=== PATIENT | male | born 1930 | race Caucasian/White ===

== ENCOUNTER 2019-01-24 12:57 | Outpatient (CLI) | payer MEDICARE, OTHER ==
--- NOTE | 2019-01-24 14:05 | RAD ---
XR Lumbar Spine 2 Or 3 View History: Compression fracture Comparison: None. Findings: The lateral radiographs are practically nondiagnostic. Compression fracture of L3 with retr opulsion narrowing the spinal canal. There is greater than 50% anterior height loss. Impression: Incomplete burst fracture of L3 with retropulsion narrowing the spinal canal and greater than 50% anterior height loss. CT or MRI recommended for evaluation.
--- NOTE | 2019-01-24 16:01 | CT ---
Exam: Lumbar spine CT without contrast HISTORY: Compression fracture. Back pain. Comparison : None. FINDINGS: There is diffuse bone demineralization. Mild compression fracture at T12 without significant retropul harish. Endplate sclerosis suggesting a chronic process. Minimal loss of the vertebral body height at L1 with irregularity of the superior endplate. Fracture is age indeterminate. There is a acute modera te compression fracture at L3 with fracture lucency and retropulsion. Additional lumbar spine fractures are not appreciated Vacuum disc phenomenon at L3-L4, L4-L5 and L5-S1 Visualized solid organs and alimentary canal are unremarkable. Atherosclerosis of a nonaneurysmal aorta There appears be post surgical change in the posterior midline soft tissues. There does appear to be a paraspinal hematoma at the L2-L3 disc space, and L3 vertebral body. Straightening of normal lumbar lordosis. No spondylolysis. Limited evaluation the contents of the central spinal canal and neural foramina due to technique T12-L1: No high-grade central canal stenosis or high-grade neural foraminal narrowing L1-L2: Broad-based disc bulge, ligament flavum thickening and facet hypertrophy result in moderate ce ntral canal stenosis. Moderate to severe bilateral neural foraminal narrowing L2-L3: Retropulsion, broad-based disc bulge, ligament flavum thickening and posteriorly hypertrophy r esult in severe central canal stenosis. There may be an epidural hematoma contributing to the overall degree of central canal stenosis. Moderate to severe bilateral neural foraminal narrowing. Th ere is malalignment of the posterior elements secondary to bilateral inferior pars fractures at L2. There is anterolisthesis of L2 to upon L3. Anterolisthesis along with retropulsion do contribute to t he overall degree of severe central canal stenosis. Moderate to severe bilateral neural foraminal narrowing L3 vertebral body: Decompressive laminectomy defect. Abnormal soft tissue attenuation the operative s ite. Central spinal canal cannot be adequately assessed. L3-L4: Vacuum disc phenomenon. Left hemilaminotomy defect. Broad-based disc bulge, posterior element hypertrophy result in moderate central canal stenosis. Moderate bilateral neural foraminal narrowing. There is partial resection left L3 facet. L4-L5: Vacuum disc phenomenon. Broad-based disc bulge, ligament flavum thickening and facet hypertrop hy result in moderate central canal stenosis. Moderate bilateral foraminal narrowing L5-S1: Vacuum disc phenomenon. Broad-based disc bulge abuts the traversing left and right L5 nerve ro ots. No significant central canal stenosis. Moderate bilateral neural foraminal narrowing. IMPRESSION: 1. Redemonstration of a L3 burst fracture. At the L2-L3 level, there is severe central canal stenosis secondary to retropulsion of the L3 vertebral body as well as anterolisthesis of L2 upon L3 secondary to bilateral facet fractures at L2. Component of postoperative change cannot be excluded. P ossibility of a anterior epidural hematoma cannot be excluded. 2. Posterior cervical changes compatible with partial resection of the inferior right L3 facet. 3. Posttraumatic change involving the L1 vertebral body, age indeterminate. Likely chronic mild compr ession fracture at T12. Results study conveyed to Dr. Rosa, via [employer] [facility] 01/24/2019 at 3:59 PM Code CR Transcribed Date/Time: 01/24/2019 4:08 PM
== END 2019-01-24 12:58 | disposition home or self-care (01) ==
LOC: TBSIIMAG 12:57
PROVIDERS: ATTEND Neurological Surgery
DX: M48.56XA Collapsed vertebra, not elsewhere classified, lumbar region, initial encounter for fracture (principal); M54.16 Radiculopathy, lumbar region; M48.061 Spinal stenosis, lumbar region without neurogenic claudication; S32.031A Stable burst fracture of third lumbar vertebra, initial encounter for closed fracture; Z98.890 Other specified postprocedural states
CPT/HCPCS: 72100; 72131

== ENCOUNTER 2019-02-06 11:12 | Emergency (ER) | payer MEDICARE, OTHER ==
--- NOTE | 2019-02-06 13:04 | RAD ---
EXAM: XR Lumbar Spine 2 Or 3 View PROVIDED CLINICAL HISTORY: Pain in the region of the L4 vertebral body after a fall. COMPARISON: 01/24/2019. FINDINGS: L3 burst fracture is again seen with persistent prominent retropulsion of the posterior superior endp late. There is also suggestion of slight anterolisthesis of L2 on L3. Fracture involving the inferior articulating facets of the L2 vertebral body are also again noted. Degree of height loss inv olving the L3 vertebral body is similar. Based on radiographic evaluation, there is likely severe narrowing of the central spinal canal at the level of retropulsion of fracture fragments. There is a mild compression fracture involving the superior endplate of the L1 vertebral body. This i s not well appreciated on prior radiographs due to technique of that exam. There is narrowing of the intervertebral disc spaces at all levels of the lumbar spine with vacuum ph enomenon at the L4-5 and L5-S1 levels. Scattered osteophytes are present. Vascular calcifications are seen abdominal aorta and involving the iliac arteries. IMPRESSION: 1. Mild compression fracture superior endplate L1 vertebral body not definitely appreciated on prior exams. 2. Burst fracture L3 vertebral body with stable degree of height loss. Fractures involving the inferi or articulating facets of the L2 vertebral body is again present.
[2019-02-06] MEDS ORDERED: Lidocaine 1% w/Epinephrine 1:100K 20 ML VIAL ONE (13:55)
== END 2019-02-06 13:50 | disposition home or self-care (01) ==
LOC: ERS 11:12
DX: M54.5 Low back pain (principal); I10 Essential (primary) hypertension; I25.2 Old myocardial infarction; Z79.899 Other long term (current) drug therapy; W18.30XA Fall on same level, unspecified, initial encounter
CPT/HCPCS: 72100

== ENCOUNTER 2019-02-22 07:09 | Outpatient (CLI) | payer MEDICARE, OTHER ==
[2019-02-22 08:23] LABS: Estimated GFR-MDRD - POC Greater than 90
--- NOTE | 2019-02-22 10:16 | MRI ---
MRI LUMBAR SPINE WITH AND WITHOUT CONTRAST: DATE: 02/22/2019 HISTORY: 88-year-old male with ICD-10: S 22.008A thoracolumbar fracture. Low back pain and bilateral lumbar ra diculopathy with bilateral lower extremity weakness. Dr. Hdz notified Dr. Dipak Rosa of the extremely severe central spinal canal stenosis at L2-3 with co mpression of cauda equina by Cipriano austin at 9:52 AM on 02/22/2019 COMPARISON: 01/24/2019 CT. No prior MRI TECHNIQUE: Multiple sequences obtained in axial and sagittal planes, pre and post IV injection of gadolinium-bas ed contrast agent. FINDINGS: There are 5 lumbar-type vertebrae. There is bilateral edema and enhancement involving the bilateral s o as muscles and in the bilateral posterior paraspinal paramedian musculature. There is severe tortuosity of the cauda equina from L1 through L2-3, due to the extremely severe central spinal canal stenosis at L2-3. T11-12:Moderate disc space narrowing. Diffuse disc bulge. Mild central stenosis. Moderate bilateral n eural foraminal stenosis. T12-L1:Mild diffuse disc bulge plus superimposed small focal central disc protrusion. Bilateral mild to moderate facet DJD. Moderate bilateral neural foraminal stenosis. Depression of superior endplate of L1, new since the recent CT, resulting in approximately 20-35% loss of height centrally a nd anteriorly. Associated bone marrow edema indicating that this is acute or subacute. Minimal bony retropulsion. Mild to moderate central stenosis. L1-2:Diffuse disc bulge. No high-grade central stenosis. Moderate bilateral neural foraminal stenosis . L2-3:Bilateral L2 inferior articular facet fractures result in rate 1 anterolisthesis of L2 on L3 (be st appreciated on the CT). This, together with the significant bony retropulsion of the L3 burst fracture results in extremely severe central spinal canal stenosis, completely obliterating CSF signa l, and severely circumferentially compressing the cauda equina. Depression of body of L3 results in about 75% loss of height. Extensive bone marrow edema indicating that the burst fracture is recent. A lso very severe bilateral neural foraminal stenosis compressing the bilateral exiting L2 nerve roots. L3-4:Left hemilaminectomy defect. Very small extruded left paracentral and lateral disc fragment surr ounded by enhancing postsurgical tissue which could either represent scar tissue if the surgery was remote, or granulation tissue if the surgery was recent. This mildly posteriorly displaces the left L 4 nerve root. Mild central stenosis. Severe bilateral neural foraminal stenosis. L4-5:Moderate bilateral facet DJD. Severe bilateral neural foraminal stenosis. Moderate to severe dis c space narrowing. Disc bulge. Left lateral recess stenosis. Mild central stenosis. L5-S1: Moderate to severe central stenosis. Conjoined nerve root. No central stenosis. Mild to modera te facet DJD. Moderate bilateral neural foraminal stenosis. Moderate to severe disc space narrowing. IMPRESSION: 1) extremely severe central spinal canal stenosis at L2-3 with severe circumferential compression of cauda equina due to combination of grade 1 anterolisthesis of L2 on L3 due to bilateral L2 inferior articular facet fractures, and bony retropulsion of the subacute burst fracture of L3. 2) very severe bilateral neural foraminal stenosis at L2-3. 3) acute or subacute compression fracture of L1, which occurred sometime after the previous CT of .
== END 2019-02-22 07:10 | disposition home or self-care (01) ==
LOC: MRI 07:09
PROVIDERS: ATTEND Family Medicine
DX: S22.008A Other fracture of unspecified thoracic vertebra, initial encounter for closed fracture (principal); S32.019A Unspecified fracture of first lumbar vertebra, initial encounter for closed fracture; M48.062 Spinal stenosis, lumbar region with neurogenic claudication; M43.16 Spondylolisthesis, lumbar region
CPT/HCPCS: 72158; 82565

== ENCOUNTER 2019-02-24 09:01 | Observation (INO) | payer MEDICARE, OTHER ==
[2019-02-23 10:38] VITALS: BMI 23.6
--- NOTE | 2019-02-24 07:49 | HP ---
HISTORY OF PRESENT ILLNESS: Mr. Oneil is a very pleasant 88-year-old gentleman with a history significant for a discectomy procedure performed emergently while up in [place] a few months ago, underwent rehab there and upon returning here noted symptoms of cauda equina. Unfortunately, he then suffered an L3 compression fracture and that evolved into a burst-type fracture with some retropulsion of the superior endplate of L3 as well as perhaps a slight anterolisthesis. New imaging confirms this and reveals significant central canal compression at the L2-L3 segment secondary to bony retropulsion. He has reported significant proximal lower extremity weakness and difficulty walking and is now dependent upon a walker to do self. He and his are concerned of this. PAST MEDICAL HISTORY: Coronary arterial disease, congestive heart failure, hypertension, glaucoma, hyperlipidemia, history of myocardial infarction, and history of prostate cancer. PAST SURGICAL HISTORY: Lumbar decompression and diskectomy, cardiac cath, prostate biopsy, and tonsillectomy. ALLERGIES: TO BETA-BLOCKERS, SULFA DRUGS, AND CEFUROXIME. CURRENT MEDICATIONS: 1. Atorvastatin. 2. Finasteride. 3. Iron. 4. Latanoprost. 5. Senna. 6. Timolol. 7. Tramadol. PHYSICAL EXAMINATION: GENERAL: The patient is alert and oriented x3. EXTREMITIES: Lower extremity motor exam reveals 4/5 in hip flexion bilaterally as well as knee extension bilaterally. 5/5 strength in knee flexion as well as ankle plantar and dorsiflexion. There is no sensory disturbance ASSESSMENT: Lumbar stenosis and L3 compression fracture. PLAN: Dr. Rosa met with the patient He explained to the patient the risks, benefits, and alternatives to the procedure. The patient expressed understanding and elected to move forward with the surgery as discussed. I do believe the patient is mentally competent and capable of making medical decisions for himself. We will move forward with surgery as planned. Job ID: [id number]
[2019-02-24] MEDS ORDERED: Lidocaine 1% PF 5 ML VIAL ONE (09:44)
[2019-02-24] MEDS ORDERED: PHENYLEPHRINE-NS 100 MCG/ML 10 ML SYRINGE ONE (09:44)
[2019-02-24] MEDS ORDERED: PROPOFOL 200 MG/20 ML VIAL ONE (09:44)
[2019-02-24] MEDS ORDERED: Rocuronium Bromide 10 MG/ML (10ML VIAL) ONE (09:44)
[2019-02-24] MEDS ORDERED: Glycopyrrolate 0.2 MG/ML 5 ML SYRINGE ONE (09:44)
[2019-02-24] MEDS ORDERED: Ondansetron PF 4 MG/2 ML Vial ONE (09:44)
[2019-02-24] MEDS ORDERED: Dexamethasone 20 MG/5 ML VIAL ONE (09:44)
[2019-02-24] MEDS ORDERED: Sodium Chloride 0.9% 0 ML ONE (11:16)
[2019-02-24] MEDS ORDERED: EPINEPHrine 1 MG/ML AMP ONE (11:56)
[2019-02-24] MEDS ORDERED: Thrombin 5000 UNITS/5 ML VIAL ONE (11:56)
[2019-02-24] MEDS ORDERED: Bupivacaine PF 0.5% 30 ML VIAL ONE (11:56)
[2019-02-24] MEDS ORDERED: Midazolam HCl 2 mg/2 ml Vial ONE (12:28)
[2019-02-24] MEDS ORDERED: Fentanyl 100 MCG/2 ML VIAL ONE ×2 (12:28→14:35)
[2019-02-24] MEDS ORDERED: Bisacodyl 10 MG SUPP PR PRN (14:14)
[2019-02-24] MEDS ORDERED: tiZANidine HCl 4 MG TAB PO PRN (14:14)
[2019-02-24] MEDS ORDERED: traMADol HCl 50 MG TAB PO PRN ×2 (14:14)
[2019-02-24] MEDS ORDERED: Ondansetron PF 4 MG/2 ML Vial IVP PRN (14:14)
[2019-02-24] MEDS ORDERED: Morphine 2 MG/ML SYRINGE SLOW IVP PRN (14:14)
[2019-02-24] MEDS ORDERED: Milk Of Magnesia 30 ML UDCUP PO PRN (14:14)
[2019-02-24] MEDS ORDERED: diphenhydrAMINE 50 MG/ML VIAL IVP PRN (14:14)
[2019-02-24] MEDS ORDERED: Senokot S 8.6-50 MG TAB PO PRN (14:18)
[2019-02-24] MEDS ORDERED: Meperidine HCl/PF 25 MG/ML VIAL SLOW IVP PRN (14:24)
[2019-02-24] MEDS ORDERED: Promethazine HCl 25 MG/ML VIAL IM PRN (14:24)
[2019-02-24] MEDS ORDERED: Ondansetron HCl/PF 4 MG/2 ML Vial IVP PRN (14:24)
--- NOTE | 2019-02-24 18:25 | OP ---
DATE OF PROCEDURE: 02/24/2019 CLERICAL AIDE TEACHER: Rafa Mcbride PA-C INDICATION: Progressive neurologic decline. DIAGNOSIS: Spinal canal compromise with conus compression secondary to L2-L3 stenosis from burst fracture. PROCEDURE PERFORMED: Re-operation L2-L3 decompression. ANESTHESIA: General. DESCRIPTION OF PROCEDURE: The patient was brought into the operating room and placed under general anesthesia. He was flipped from the supine to prone position on the operating room table. A linear incision was planned at the area of an old incision site. This area was prepped and draped. Following an appropriate operative pause, the incision was created. The soft tissues were swept away from midline. Self-retaining retractors were placed. A C-arm image was obtained to confirm the fracture site as well as the location of needed decompression. The inferior articulating facets of L2 were already missing from the patient's prior surgical procedure performed elsewhere. The remaining lamina was removed up through L2 in order to decompress the L2-L3 segment at the area of conus compression. After decompressing the segment, the wound was irrigated. Hemostasis was maintained throughout. The wound was then closed in anatomic layers, and a pressure dressing was applied. There were no known procedural complications. Job ID: [id number] [facility]
[2019-02-24] MEDS: Sodium Chloride 0.9% 1,000 ML IV SCH (18:49)
[2019-02-24] MEDS: Timolol 0.5% Ophth Soln 5 ml Bottle EA EYE SCH (21:22)
[2019-02-24] MEDS: CEFAZOLIN 2 GM in Premix Bag 1 BAG IVPB SCH (21:22)
[2019-02-24] MEDS: Latanoprost 0.005% Ophth Soln 2.5 ml Bottle EA EYE SCH (21:22)
[2019-02-24] MEDS: Iron Polysaccharides Complex 150 MG CAP PO SCH (21:28)
[2019-02-25] MEDS: Sodium Chloride 0.9% 1,000 ML IV SCH ×3 (03:48→21:53)
[2019-02-25] MEDS: CEFAZOLIN 2 GM in Premix Bag 1 BAG IVPB SCH (03:59)
[2019-02-25] MEDS ORDERED: Prevnar 13-Val Conj/PF 0.5 ML SYRINGE IM ONE (09:00)
--- NOTE | 2019-02-25 09:03 | PRG ---
DATE OF SERVICE: 02/25/2019 I saw Mr. Oneil on rounds this morning. He is one day out from a lumbar decompression for spinal stenosis from a subacute burst fracture. Prior to surgery, Mr. Oneil was losing significant strength and since the operation he has not noticed much in the way of difference. However, Mr. Oneil has not been out of bed. He and his were concerned about urinary retention, but this may have been an issue before the operation. I do not see any fevers recorded on the electronic vital signs. The blood pressures have been in the 140s to 150s. On examination, there is antigravity strength in all muscle groups of the lower extremities. My plan is to have Mr. Oneil work with Physical Therapy today. Evidently, he has been pre-approved for inpatient rehabilitation and that is a good option. Today, if possible, he could be transferred. If transferring there today is impossible, we will work with him in Physical therapy today. Standing at bedside could be a goal for today. Anticipate any anesthesia affects on the bladder to be short lived. Job ID: [id number] [facility]TD[facility]
[2019-02-25] MEDS: Timolol 0.5% Ophth Soln 5 ml Bottle EA EYE SCH ×2 (09:46→21:50)
[2019-02-25] MEDS: Iron Polysaccharides Complex 150 MG CAP PO SCH ×2 (09:46→21:50)
[2019-02-25] MEDS: Acetaminophen 500 MG TAB PO PRN (10:24)
[2019-02-25] MEDS ORDERED: Atorvastatin Calcium 40 MG TAB PO SCH (21:00)
[2019-02-25] MEDS: Latanoprost 0.005% Ophth Soln 2.5 ml Bottle EA EYE SCH (21:51)
[2019-02-26] MEDS: Acetaminophen 500 MG TAB PO PRN ×2 (00:01→15:32)
[2019-02-26] MEDS: Sodium Chloride 0.9% 1,000 ML IV SCH (07:53)
[2019-02-26] MEDS: Timolol 0.5% Ophth Soln 5 ml Bottle EA EYE SCH (08:22)
[2019-02-26] MEDS: Iron Polysaccharides Complex 150 MG CAP PO SCH (09:03)
--- NOTE | 2019-02-26 11:15 | PRG ---
DATE OF SERVICE: 02/26/2019 I saw Mr. Oneil in his hospital room this morning. His said he was disoriented overnight, but did well with physical therapy yesterday during the day. I do not see any fevers recorded in our electronic vital signs. His blood pressures have been in the 140s to 160s. On examination today, he has good strength and sensation in the lower extremities. I reassured Mr. Oneil that the placement in inpatient rehabilitation would be a good idea. Hopefully, that can be done tomorrow. He is having some difficulty with bladder function, and if that continues, we could leave the catheter in or consult Urology. I think it will resolve itself with I and O catheterization. Job ID: [id number]
[2019-02-26 15:53] VITALS: BP 121/79; TEMP 98.1
== END 2019-02-26 18:03 ==
LOC: SDC 09:01 → SURG B 14:19
PROVIDERS: ADMIT Neurological Surgery; ATTEND Neurological Surgery
PROC: 01NB0ZZ Release Lumbar Nerve, Open Approach (ICD-10-PCS; principal; 2019-02-24)
DX: S32.031A Stable burst fracture of third lumbar vertebra, initial encounter for closed fracture (principal); M48.061 Spinal stenosis, lumbar region without neurogenic claudication; M54.16 Radiculopathy, lumbar region; I25.10 Atherosclerotic heart disease of native coronary artery without angina pectoris; E78.5 Hyperlipidemia, unspecified; I25.2 Old myocardial infarction; I11.0 Hypertensive heart disease with heart failure; I50.9 Heart failure, unspecified; Z79.899 Other long term (current) drug therapy; Z88.2 Allergy status to sulfonamides; Z88.8 Allergy status to other drugs, medicaments and biological substances; Z98.890 Other specified postprocedural states
CPT/HCPCS: 63042; 76000; 90670; 96361 ×3; 96365; 96366; 96375 ×2; 97110; 97116 ×2; 97530; G0009; G0378 ×3; 90471; J0131; J0171; J0690; J1100; J1200; J2001; J2250; J2270; J2405; J2704; J3010; J3490; S0020

== ENCOUNTER 2019-03-23 10:28 | Outpatient (CLI) | payer MEDICARE, OTHER ==
--- NOTE | 2019-03-23 10:57 | RAD ---
TWO VIEWS LUMBAR SPINE: COMPARISON: 02/06/2019. FINDINGS: Five lumbar-type vertebral bodies with progression of loss of vertebral body height at L1 (moderate). Interval development of loss of vertebral body height at L2 (mild to moderate). Progression of loss of vertebral body height with what is now compatible with vertebra plana at the L3 level. Slight ly worsening retropulsion. IMPRESSION: 1. Worsening loss of vertebral body height at L1 and L3. 2. Interval development of a mild to moderate compression fracture at L2. Compression fracture is not appreciated on the MRI from 02/22/2019 suggesting a subacute process. Correlate clinically. CODE T Transcribed Date/Time: 03/23/2019 11:04 AM
== END 2019-03-23 10:29 | disposition home or self-care (01) ==
LOC: TBSIIMAG 10:28
PROVIDERS: ATTEND Neurological Surgery
DX: M54.16 Radiculopathy, lumbar region (principal); M48.56XA Collapsed vertebra, not elsewhere classified, lumbar region, initial encounter for fracture; M48.8X6 Other specified spondylopathies, lumbar region
CPT/HCPCS: 72100

== ENCOUNTER 2019-06-20 09:11 | Outpatient (CLI) | payer MEDICARE, OTHER ==
--- NOTE | 2019-06-20 11:09 | RAD ---
LUMBAR SPINE 2 VIEWS: Date: 06/20/2019 INDICATION: Thoracolumbar fracture. Low back pain. COMPARISON: 03/23/2019. FINDINGS: Wedge compression deformities seen at T12, L1, L2, and L3 vertebra. Severe wedge compression at L3 wi th posterior retropulsion of L3. L4 and L5 vertebra maintain height and alignment. Degenerative disc changes and spurring with facet hypertrophy throughout. The findings appear stable when compared to 03/23/2019. IMPRESSION: Multiple compression deformities, most severe at L3 where there is posterior retropulsion. The findin gs appear stable from 03/23/2019. POS: [facility]
== END 2019-06-20 09:12 | disposition home or self-care (01) ==
LOC: BICRAD 09:11
PROVIDERS: ATTEND Neurological Surgery
DX: S24.109A Unspecified injury at unspecified level of thoracic spinal cord, initial encounter (principal); G95.20 Unspecified cord compression; M53.86 Other specified dorsopathies, lumbar region
CPT/HCPCS: 72100

== ENCOUNTER 2019-11-30 12:50 | Outpatient (CLI) | payer MEDICARE, OTHER ==
--- NOTE | 2019-11-30 13:32 | RAD ---
Radiograph thoracic spine 3 views: 11/30/2019 HISTORY: 81-year-old male with mid back pain FINDINGS: There is multilevel moderate degenerative disc disease in the mid and lower levels. No high-grade sco liosis. Vertebral body heights are maintained. Pedicles appear to be grossly intact on frontal view. IMPRESSION: Mid and lower thoracic spondylosis. No compression fracture.
--- NOTE | 2019-11-30 13:50 | RAD ---
TWO VIEWS LUMBAR SPINE: INDICATION: History of back pain. COMPARISON: Prior exam dated 06/20/2019. FINDINGS: Prominent wedge compression abnormality of L3 is stable. Mild wedge compression abnormalities at L1 and T12 are stable. Anterolisthesis of L2 on L3 is stable. Vacuum disk phenomenon is present at L5 -S1, L4-5, L3-4, L1-2, and T12-L1 likely indicative of some disk instability. There is diffuse osteo penia. There is scattered vascular calcification. There is an endograft stent in the left common il iac region. There are scattered vascular calcifications. IMPRESSION: Stable compression abnormalities of the lumbar spine with advanced spondylosis. POS: [facility]
== END 2019-11-30 12:51 | disposition home or self-care (01) ==
LOC: BICRAD 12:50
PROVIDERS: ATTEND Neurological Surgery
DX: M54.5 Low back pain (principal); M54.6 Pain in thoracic spine; M47.816 Spondylosis without myelopathy or radiculopathy, lumbar region; M47.814 Spondylosis without myelopathy or radiculopathy, thoracic region; G95.20 Unspecified cord compression
CPT/HCPCS: 72072; 72100